=== PATIENT | male | born 1965 | race Caucasian/White ===

== ENCOUNTER 2018-05-11 10:34 | Emergency (ER) | payer OTHER ==
[~2018-05-11] VITALS: Ht 180.3 cm; Wt 81.6 kg
--- NOTE | ~2018-05-11 | EKG ---
[place], [place] ELECTROCARDIOGRAM REPORT NAME: TIFF ARMSTRONG UNIT #: [id number] ROOM: DOCTOR: EPIPHANY DRAFT REPORT BIRTHDATE: [birth year] [facility] Test Date: 2018-05-11 Test Time: 12:10:00 Pat Name: TIFF ARMSTRONG Department: ER Room: Gender: [employer]: SANDY : 1965 Requested By: OLAYINKA BARNES Order Number: [id number] Reading MD: Buck Mcdowell MD Measurements Intervals [place] Rate: 67 P: 0 CO: 158 QRS: -30 QRSD: 94 T: 12 QT: 410 QTc: 433 Interpretive Statements Sinus rhythm Left axis deviation Electronically Signed On 05-12-2018 13:27:30 PDT by Buck Mcdowell MD CM:EKGRPT:ELECTROCARDIOGRAM REPORT 1210 [id number] OLAYINKA VILLAGOMEZ DRAFT REPORT OLAYINKA BARNES M.D.
[2018-05-11 11:52] LABS: BASO % 0.3 % (0.0-1.0); EOS # 0.2 10*3/uL (0.0-0.4); EOS % 2.3 % (1.0-4.0); HEMATOCRIT 45.5 % (42.0-52.0); HEMOGLOBIN 15.7 g/dl (14.0-18.0); LYMPH % 27.8 % (27.0-41.0); MEAN CELL VOLUME 89.9 fl (80.0-94.0); MEAN CORPUSCULAR HGB CONC 34.5 g/dl (33.0-37.0); MEAN PLATELET VOLUME 9.5 fl (9.6-12.3); MONO # 0.7 10*3/uL (0.1-1.0); MONO % 9.7 % (3.0-9.0); NEUT # 4.4 10*3/uL (2.3-7.9); NEUT % 59.8 % (47.0-73.0); PLATELET COUNT AUTOMATED 263 10*3/uL (130-400); RED BLOOD COUNT 5.06 10*6/uL (4.50-5.90); RED CELL DISTRI WIDTH 11.9 % (0-14.5); WHITE BLOOD COUNT 7.3 10*3/uL (4.8-10.8)
[2018-05-11 12:09] LABS: ALBUMIN 3.7 gm/dl (3.1-4.5); ALKALINE PHOSPHATASE 78 U/L (45-117); BUN 14 mg/dl (7-24); CHLORIDE 108 mmol/L (98-107); CREATININE 0.97 mg/dL (0.70-1.30); POTASSIUM 4.1 mmol/L (3.5-5.1); SGOT/AST 15 IU/L (3-35); SGPT/ALT 31 U/L (12-78); SODIUM 138 mmol/L (136-145); TOTAL PROTEIN 7.8 gm/dL (6.4-8.2)
[2018-05-11 12:10] LABS: TROPONIN I < 0.015 ng/ml (<0.045)
== END 2018-05-11 19:01 | disposition home or self-care (01) ==
LOC: ED 10:34
PROVIDERS: Emergency Medicine
DX: R07.9 Chest pain, unspecified (principal); R05 Cough; R06.7 Sneezing